=== PATIENT | female | born 1960 | race Caucasian/White ===

== ENCOUNTER 2016-04-01 12:57 | Emergency (ER) | payer BC, OTHER ==
[~2016-04-01] VITALS: Ht 160 cm; Wt 109.0 kg
[~2016-04-01 12:57] MED LIST: ATEN-100 PO; DRIS8000 PO; HYDR-3533 PO; LOVA1TAB47 PO; MIRA25TA; MULT-65 PO; PROT40TA PO
[2016-04-01 13:15] VITALS: BP 168/79; PULSE 76; RESP 20; TEMP 97.8; O2SAT 98
--- NOTE | 2016-04-01 13:26 | PD ---
HPI Chief Complaint: Chest Pain Time Seen by Provider: 13:06 Travel History International Travel<30 days: No Contact w/Intl Traveler<30days: No Traveled to known affect area: No History of Present Illness HPI This 55-year-old female is complaining of left-sided chest pain. Pain has been going on for several days. She's also been having some shooting pain in her left arm. She has recently been found to have bilateral breast cancer and is scheduled for bilateral mastectomy in April 18. She has been started on room and affect. She's been in the room and asked for about 2 months and has not been feeling well for the past week. She has not been eating well. She has been dizzy. She feels like her left arm goes numb. She has been congested and feels like she heard at times she is not aware of any fever. His been having some pain in her teeth and some nasal congestion PFSH Past Medical History Hx Anticoagulant Therapy: No Cardiovascular Problems: Yes (SINUS TACHYCARDIA) High Cholesterol: Yes Chemotherapy: No Diabetes: No Diminished Hearing: No GERD: Yes Genitourinary: Yes (INTERSTITIAL CYSTITIS) Hypertension: Yes Respiratory: No Immunizations Current: No Menopausal: Yes : 7 Para: 0 Miscarriage: 7 Past Surgical History Body Medical Devices: BLADDER PACEMAKER Genitourinary Surgery: Yes (MULT BLADDER PROCEDURES, PACER ) Other Surgery: Yes (BLADDER SURGERY ) Social History Alcohol Use: No Tobacco Use: No (QUIT TWO MONTHS AGO) Substance Use: No Allergies-Medications (Allergen,Severity, Reaction): Coded Allergies: No Known Allergies (Unverified , 04/01/16) Reported Meds & Prescriptions Reported Meds & Active Scripts Active Reported Arimidex (Anastrozole) 1 Mg Tab 1 Mg PO DAILY Alprazolam 0.5 Mg Tab 0.5 Mg PO HS PRN Tagamet Hb (Cimetidine) 200 Mg Tab 400 Mg PO DAILY Atenolol 25 Mg Tab 25 Mg PO BID Review of Systems General / Constitutional: No: Fever, Chills Eyes: No: Diploplia, Blurred Vision HENT: Positive: Rhinitis, Dental Difficulties Cardiovascular: Positive: Chest Pain or Discomfort Respiratory: No: Cough, Shortness of Breath Gastrointestinal: Positive: Nausea, No: Vomiting Genitourinary: No: Urgency Musculoskeletal: Positive: Myalgias, Arthralgias Psychiatric: Positive: Anxiety Endocrine: No: Heat Intolerance Physical Exam Narrative GENERAL: Well-developed female SKIN: Warm and dry. HEAD: Atraumatic. Normocephalic. EYES: Pupils equal and round. No scleral icterus. No injection or drainage. ENT: No nasal bleedinG. There is mucus and sinus. This tender to palpation. Mucous membranes pink and moist. NECK: Trachea midline. No JVD. CARDIOVASCULAR: Regular rate and rhythm. No murmur appreciated. There is left costochondral tenderness RESPIRATORY: No accessory muscle use. Clear to auscultation. Breath sounds equal bilaterally. GASTROINTESTINAL: Abdomen soft, non-tender, nondistended. Hepatic and splenic margins not palpable. MUSCULOSKELETAL: No obvious deformities. No clubbing. No cyanosis. No edema. NEUROLOGICAL: Awake and alert. No obvious cranial nerve deficits. Motor grossly within normal limits. Normal speech. PSYCHIATRIC: Appropriate mood and affect; insight and judgment normal. Data Data Last Documented VS Vital Signs Date Time Temp Pulse Resp B/P Pulse Ox O2 Delivery O2 Flow Rate FiO2 04/01/16 13:15 97.8 76 20 168/79 98 04/01/16 13:15 Room Air Orders Electrocardiogram (04/01/16 13:21) Complete Blood Count With Diff (04/01/16 13:21) Comprehensive Metabolic Panel (04/01/16 13:21) Ckmb (Isoenzyme) Profile (04/01/16 13:21) Troponin I (04/01/16 13:21) Magnesium (Mg) (04/01/16 13:21) Chest, Single Ap (04/01/16 13:21) Ondansetron Inj (Zofran Inj) (04/01/16 14:45) Labs Laboratory Tests Test 04/01/16 13:18 White Blood Count 7.6 TH/MM3 Red Blood Count 5.17 MIL/MM3 Hemoglobin 13.4 GM/DL Hematocrit 41.2 % Mean Corpuscular Volume 79.6 FL Mean Corpuscular Hemoglobin 26.0 PG Mean Corpuscular Hemoglobin 32.7 % Concent Red Cell Distribution Width 13.8 % Platelet Count 364 TH/MM3 Mean Platelet Volume 7.8 FL Neutrophils (%) (Auto) 66.0 % Lymphocytes (%) (Auto) 22.6 % Monocytes (%) (Auto) 7.3 % Eosinophils (%) (Auto) 3.2 % Basophils (%) (Auto) 0.9 % Neutrophils # (Auto) 5.0 TH/MM3 Lymphocytes # (Auto) 1.7 TH/MM3 Monocytes # (Auto) 0.6 TH/MM3 Eosinophils # (Auto) 0.2 TH/MM3 Basophils # (Auto) 0.1 TH/MM3 CBC Comment DIFF FINAL Differential Comment Sodium Level 144 MEQ/L Potassium Level 4.2 MEQ/L Chloride Level 106 MEQ/L Carbon Dioxide Level 27.9 MEQ/L Anion Gap 10 MEQ/L Blood Urea Nitrogen 15 MG/DL Creatinine 1.00 MG/DL Estimat Glomerular Filtration 58 ML/MIN Rate Random Glucose 95 MG/DL Calcium Level 9.6 MG/DL Magnesium Level 2.3 MG/DL Total Bilirubin 0.4 MG/DL Aspartate Amino Transf 13 U/L (AST/SGOT) Alanine Aminotransferase 18 U/L (ALT/SGPT) Alkaline Phosphatase 79 U/L Total Creatine Kinase 50 U/L Troponin I LESS THAN 0.02 NG/ML Total Protein 7.9 GM/DL Albumin 3.6 GM/DL [facility] Medical Decision Making Medical Screen Exam Complete: Yes Emergency Medical Condition: Yes Medical Record Reviewed: Yes Differential Diagnosis Differential includes chest pain, coronary artery disease, costochondritis, sinusitis, adverse medication effect Narrative Course He is on Arimidex and is having multiple myalgias and arthralgias which may be related. Her EKG and troponin are normal. Her chest pain is reproducible by palpation. EKG and troponin are normal. Patient is stable for discharge. I' ll prescribe Zofran as she is having some nausea, amoxicillin and Flexeril Diagnosis Primary Impression: Sinusitis, acute maxillary Qualified Code: J01.00 - Acute maxillary sinusitis, recurrence not specified Scripts Ondansetron Odt (Zofran Odt)4 Mg Tab4 Mg SL Q6HR PRN (Nausea/Vomiting) #15 TAB Ref 0 Prov:Terry Elmore MD 04/01/16 Cyclobenzaprine (Flexeril)10 Mg Tab10 Mg PO TID #30 TAB Ref 0 Prov:Terry Elmore MD 04/01/16 Amoxicillin 500 Mg [id number] Mg PO TID #30 TAB Ref 0 Prov:Terry Elmore MD 04/01/16 Disposition: DISCHARGE HOME Condition: Stable Terry Elmore MD Apr 01, 2016 13:26
[2016-04-01] MEDS ORDERED: ALPR0.5T3 PO (13:28)
[2016-04-01] MEDS ORDERED: ANAS1 PO (13:28)
[2016-04-01] MEDS ORDERED: ATEN25TA PO (13:28)
[2016-04-01] MEDS ORDERED: CIME200T23 PO (13:28)
[2016-04-01 13:34] LABS: BASOPHIL # 0.1 TH/MM3 (0-0.2); BASOPHIL % 0.9 % (0.0-2.0); EOSINOPHIL # 0.2 TH/MM3 (0-0.4); EOSINOPHIL % 3.2 % (0.0-4.0); HEMATOCRIT 41.2 % (35.0-46.0); HEMO FLAGS DIFF FINAL; LYMPH % 22.6 % (9.0-44.0); LYMPHOCYTE # 1.7 TH/MM3 (1.0-4.8); MEAN CELL VOLUME 79.6 FL (80.0-100.0); MEAN CORPUSCULAR HGB CONC 32.7 % (32.0-36.0); MONO % 7.3 % (0.0-8.0); PLATELET COUNT 364 TH/MM3 (150-450); RED BLOOD COUNT 5.17 MIL/MM3 (4.00-5.30); RED CELL DISTRIBUTION WIDTH 13.8 % (11.6-17.2); WHITE BLOOD COUNT 7.6 TH/MM3 (4.0-11.0)
[2016-04-01 13:42] LABS: CHLORIDE 106 MEQ/L (98-107); POTASSIUM 4.2 MEQ/L (3.5-5.1); SODIUM (NA) 144 MEQ/L (136-145)
[2016-04-01 13:46] LABS: ANION GAP 10 MEQ/L (5-15); BICARBONATE 27.9 MEQ/L (21.0-32.0); BLOOD UREA NITROGEN 15 MG/DL (7-18); MAGNESIUM 2.3 MG/DL (1.5-2.5)
[2016-04-01 13:49] LABS: ALT (GPT) 18 U/L (10-53); AST (GOT) 13 U/L (15-37); GLOMERULAR FILTRATION RATE 58 ML/MIN (>89)
[2016-04-01 13:51] LABS: TOTAL BILIRUBIN ADULT 0.4 MG/DL (0.2-1.0)
[2016-04-01 13:52] LABS: ALKALINE PHOSPHATASE 79 U/L (45-117)
--- NOTE | 2016-04-01 13:53 | RADHPO ---
EXAM DATE/TIME: 04/01/2016 13:41 [facility] COMPARISON: CHEST SINGLE AP, September 27, 2013, 6:51. INDICATIONS : Mid left chest pains MEDICAL HISTORY : Carcinoma, breast. SURGICAL HISTORY : lumpectomy ENCOUNTER: Initial ACUITY: 2 days PAIN SCORE: 4/10 LOCATION: Left chest FINDINGS: The lungs are under aerated but clear. Heart and pulmonary vascularity are normal. Portion of bony skeleton visualized is unremarkable. CONCLUSION: Negative chest for acute disease. Torsten Yip MD FACR on April 01, 2016 at 13:49 Board Certified Radiologist. This report was verified electronically.
[2016-04-01 13:57] LABS: CREATINE KINASE 50 U/L (26-192)
[2016-04-01] MEDS ORDERED: ONDANSETRON HCL 4 MG/2 ML VIAL IV PUSH ONE (14:45)
[2016-04-01] MEDS ORDERED: ZOFR4TAB3 SL (15:09)
[2016-04-01] MEDS ORDERED: AMOX500T PO (15:09)
[2016-04-01] MEDS ORDERED: CYCL1TAB29 PO (15:09)
[2016-04-01 15:33] VITALS: BP 138/69; PULSE 90; RESP 20; O2SAT 97
--- NOTE | 2016-04-01 17:35 | EKG ---
Date Performed: 04/01/2016 Time Performed: 12:59:06 PTAGE: 55 years EKG: Sinus rhythm Anterior T wave changes are nonspecific Borderline ECG PREVIOUS TRACING : 07/17/2014 15.57 No significant change from previous tracing noted. DOCTOR: Mario Way Interpretating Date/Time 04/01/2016 17:34:05
== END 2016-04-01 15:34 | disposition home or self-care (01) ==
LOC: PHED 12:57
DX: E78.00 Pure hypercholesterolemia, unspecified (principal); I10 Essential (primary) hypertension; C50.912 Malignant neoplasm of unspecified site of left female breast; Z87.891 Personal history of nicotine dependence; J01.00 Acute maxillary sinusitis, unspecified
CPT/HCPCS: 71010; 80053; 82550; 83735; 84484; 85025; 93005; 96374; 99284; J2405

== ENCOUNTER 2016-10-02 17:51 | Emergency (ER) | payer OTHER ==
[~2016-10-02] VITALS: Ht 160 cm; Wt 118.9 kg
[~2016-10-02 17:51] MED LIST changes: +ALPR0.5T3 PO; +AMOX500T PO; +ANAS1 PO; -ATEN-100 PO; +ATEN25TA PO; +CIME200T23 PO; +CYCL1TAB29 PO; -DRIS8000 PO; -HYDR-3533 PO; -LOVA1TAB47 PO; -MIRA25TA; -MULT-65 PO; -PROT40TA PO; +ZOFR4TAB3 SL
[2016-10-02 18:01] VITALS: BP 164/96; PULSE 97; RESP 16; TEMP 97.8; O2SAT 98
== END 2016-10-02 18:39 | disposition left against medical advice (07) ==
LOC: PHED 17:51
DX: R68.89 Other general symptoms and signs (principal)
CPT/HCPCS: 99281

== ENCOUNTER 2016-11-01 06:07 | Emergency (ER) | payer OTHER ==
[~2016-11-01] VITALS: Ht 162.6 cm; Wt 118.8 kg
[2016-11-01 06:21] VITALS: BP 180/97; PULSE 92; RESP 18; TEMP 99.1; O2SAT 100
[2016-11-01] MEDS ORDERED: BACT800T5 PO (06:54)
[2016-11-01] MEDS ORDERED: DOXY100C PO (06:54)
--- NOTE | 2016-11-01 06:55 | PD ---
HPI Chief Complaint: Skin Problem Time Seen by Provider: 06:22 Travel History International Travel<30 days: No Contact w/Intl Traveler<30days: No Traveled to known affect area: No History of Present Illness HPI The patient is a 56-year-old female that has a slightly pruritic red spots on the right axilla for about 3-4 days. She also complains of some darkened reddened areas around her breast resection site on the left. These have been present for 2 months. The patient is anxious. She has not seen her surgeon that did the mastectomy for over 2 months. She had the surgery done at [facility]. With respect to the right axilla, the patient does use antiperspirants and did shave her axillary hair. The patient states her blood pressure is 117/60 at home but it comes up significantly here in emergency department. There is an area that is draining on the left breast resection site. This is been draining for 2 months. She denies any fever at home. PFSH Past Medical History Hx Anticoagulant Therapy: No Anxiety: Yes (R/T CANCER DIAGNOSIS) Heart Rhythm Problems: Yes (SINUS TACHYCARDIA) Cancer: Yes (RIGHT BREAST) Cardiovascular Problems: Yes (SINUS TACHYCARDIA) High Cholesterol: Yes Chemotherapy: No Diabetes: No Diminished Hearing: No GERD: Yes Genitourinary: Yes (INTERSTITIAL CYSTITIS) Hypertension: Yes Respiratory: No Immunizations Current: Yes Tetanus Vaccination: > 5 Years Influenza Vaccination: Yes ?: Not LMP: JULY 2016 Menopausal: Yes : 7 Para: 0 Miscarriage: 7 Past Surgical History Body Medical Devices: BLADDER PACEMAKER Genitourinary Surgery: Yes (MULT BLADDER PROCEDURES, BLADDER PACEMAKER) Mastectomy: Yes (MARCH 2015: BILATERAL) Other Surgery: Yes (BLADDER SURGERY, BREAST LUMPECTOMIES X2) Social History Alcohol Use: No Tobacco Use: Yes (2 CIGARETTES PER DAY) Substance Use: No Allergies-Medications (Allergen,Severity, Reaction): Coded Allergies: No Known Allergies (Unverified , 11/01/16) Reported Meds & Prescriptions Reported Meds & Active Scripts Active Reported Arimidex (Anastrozole) 1 Mg Tab 1 Mg PO DAILY Alprazolam 0.5 Mg Tab 0.5 Mg PO HS PRN Tagamet Hb (Cimetidine) 200 Mg Tab 400 Mg PO DAILY Atenolol 25 Mg Tab 25 Mg PO BID Review of Systems Except as stated in HPI: all other systems reviewed are Neg Physical Exam Narrative GENERAL: Well-nourished, slightly obese, extremely anxious appearing patient in no apparent distress. The patient's vital signs show blood pressure 180/97 but otherwise normal. SKIN: Focused skin assessment warm/dry. There are hidradenitis suppurativa lesions on the right axilla. These are simple, no vesicles or abscesses are present. These all appear to be very early lesions. There are lesions that appear as raised hyperpigmented lesions over the left breast resection site. The skin is not broken anywhere. There is a slight drainage which is not foul smelling from the left breast resection site. This will be cultured. HEAD: Normocephalic. EYES: No scleral icterus. No injection or drainage. NECK: Supple, trachea midline. No JVD or lymphadenopathy. CARDIOVASCULAR: Regular rate and rhythm without murmurs, gallops, or rubs. RESPIRATORY: Breath sounds equal bilaterally. No accessory muscle use. GASTROINTESTINAL: Abdomen soft, non-tender, nondistended. MUSCULOSKELETAL: No cyanosis, or edema. BACK: Nontender without obvious deformity. No CVA tenderness. Data Data Last Documented VS Vital Signs Date Time Temp Pulse Resp B/P Pulse Ox O2 Delivery O2 Flow Rate FiO2 11/01/16 06:21 99.1 92 18 180/97 100 MDM Medical Decision Making Medical Screen Exam Complete: Yes Emergency Medical Condition: Yes Medical Record Reviewed: Yes Differential Diagnosis Hidradenitis suppurativa, staph infection, recurrent breast cancerunlikely Narrative Course The patient on the right axilla does have hidradenitis suppurativa. This is early and mild. The lesions and drainage on the left breast are chronic and may or may not be associated with staph infection. Diagnosis Primary Impression: Hidradenitis suppurativa Additional Impression: Staphylococcal infection of skin Additional Instructions: As we discussed, the left axilla should be kept cool, clean and without antiperspirant spray. Both antibiotics are twice daily for 10 days. Follow-up with your plastic surgeon as you intend to do. Med/Other Pt SpecificInfo: Prescription(s) given Scripts Sulfamethoxazole-Trimethoprim (Bactrim DS)800-160 Mg Tab1 Tab PO BID #20 TAB Ref 0 Prov:Pedro Wong MD 11/01/16 Doxycycline Hyclate 100 Mg [id number] Mg PO BID #20 CAP Ref 0 Prov:Pedro Wong MD 11/01/16 Disposition: 01 DISCHARGE HOME Condition: Stable Pedro Wong MD Nov 01, 2016 06:55
[2016-11-01] MEDS ORDERED: DOXYCYCLINE HYCLATE 100 MG CAP PO ONE (07:00)
[2016-11-01] MEDS ORDERED: SULFAMETHOXAZOLE-TRIMETHOPRIM DS 800-160 MG TAB PO ONE (07:00)
== END 2016-11-01 07:15 | disposition home or self-care (01) ==
LOC: PHED 06:07
DX: L73.2 Hidradenitis suppurativa (principal); L08.9 Local infection of the skin and subcutaneous tissue, unspecified; F17.210 Nicotine dependence, cigarettes, uncomplicated; R00.0 Tachycardia, unspecified; E78.00 Pure hypercholesterolemia, unspecified; K21.9 Gastro-esophageal reflux disease without esophagitis; I10 Essential (primary) hypertension
CPT/HCPCS: 99284

== ENCOUNTER 2016-12-24 08:14 | Emergency (ER) | payer OTHER ==
[~2016-12-24] VITALS: Ht 160 cm; Wt 120.0 kg
[~2016-12-24 08:14] MED LIST changes: -AMOX500T PO; +BACT800T5 PO; -CYCL1TAB29 PO; +DOXY100C PO; -ZOFR4TAB3 SL
[2016-12-24 08:27] VITALS: BP 146/82; PULSE 103; RESP 18; TEMP 98.1; O2SAT 98
[2016-12-24] MEDS ORDERED: LOVA20TA PO (08:36)
--- NOTE | 2016-12-24 08:54 | PD ---
HPI Chief Complaint: Flank/Kidney Pain Time Seen by Provider: 08:45 Travel History International Travel<30 days: No Contact w/Intl Traveler<30days: No Traveled to known affect area: No History of Present Illness HPI The patient was seen and examined in the presence of the nurse. This patient complains of bilateral flank pain. Duration 2 days. Severity is moderate. No injury. Denies urinary complaints. No alleviating factors. Exacerbating factors. Has not had any fever. No sciatic radiation PFSH Past Medical History Hx Anticoagulant Therapy: No Anxiety: Yes (R/T CANCER DIAGNOSIS) Heart Rhythm Problems: Yes (SINUS TACHYCARDIA) Cancer: Yes (RIGHT BREAST) Cardiovascular Problems: Yes (SINUS TACHYCARDIA) High Cholesterol: Yes Chemotherapy: No Diabetes: No Diminished Hearing: No GERD: Yes Genitourinary: Yes (INTERSTITIAL CYSTITIS) Hypertension: Yes Respiratory: No Immunizations Current: Yes Influenza Vaccination: Yes ?: Not Menopausal: Yes : 7 Para: 0 Miscarriage: 7 Past Surgical History Body Medical Devices: BLADDER PACEMAKER Genitourinary Surgery: Yes (MULT BLADDER PROCEDURES, BLADDER PACEMAKER) Mastectomy: Yes (MARCH 2015: BILATERAL) Other Surgery: Yes (BLADDER SURGERY, BREAST LUMPECTOMIES X2) Social History Alcohol Use: No Tobacco Use: Yes (2 CIGARETTES PER DAY) Substance Use: No Allergies-Medications (Allergen,Severity, Reaction): Coded Allergies: No Known Allergies (Unverified , 12/24/16) Reported Meds & Prescriptions Reported Meds & Active Scripts Active Tramadol (Tramadol HCl) 50 Mg Tab 50 Mg PO Q6H PRN Reported Lovastatin 20 Mg Tab 20 Mg PO DAILY Arimidex (Anastrozole) 1 Mg Tab 1 Mg PO DAILY Alprazolam 0.5 Mg Tab 0.5 Mg PO HS PRN Tagamet Hb (Cimetidine) 200 Mg Tab 400 Mg PO DAILY Atenolol 25 Mg Tab 25 Mg PO BID Review of Systems General / Constitutional: No: Fever Eyes: No: Visual changes HENT: No: Headaches Cardiovascular: No: Chest Pain or Discomfort Respiratory: No: Shortness of Breath Gastrointestinal: No: Abdominal Pain Genitourinary: No: Dysuria Musculoskeletal: Positive: Pain Skin: No Rash Neurologic: No: Weakness Psychiatric: No: Depression Endocrine: No: Polydipsia Hematologic/Lymphatic: No: Easy Bruising Physical Exam Narrative GENERAL: Well-nourished, well-developed patient in no apparent distress. SKIN: Focused skin assessment reveals no rash and nodules. Skin is Warm and dry. HEAD: Atraumatic. Normocephalic. EYES: Pupils equal and round. No scleral icterus. No injection or drainage. ENT: No nasal bleeding or discharge. Mucous membranes pink and moist. NECK: Trachea midline. No JVD. CARDIOVASCULAR: Regular rate and rhythm. No murmur appreciated. RESPIRATORY: No accessory muscle use. Clear to auscultation. Breath sounds equal bilaterally. GASTROINTESTINAL: Abdomen soft, non-tender, nondistended. Hepatic and splenic margins not palpable. MUSCULOSKELETAL: No obvious deformities. No clubbing. No cyanosis. No edema. Some initial back reveals no midline tenderness. No bruising or swelling or spasm. Straight leg raise and crossed straight leg raise negative. NEUROLOGICAL: Awake and alert. No obvious cranial nerve deficits. Motor grossly within normal limits. Normal speech. PSYCHIATRIC: Appropriate mood and affect; insight and judgment normal. Data Data Last Documented VS Vital Signs Date Time Temp Pulse Resp B/P (MAP) Pulse Ox O2 Delivery O2 Flow Rate FiO2 12/24/16 08:27 98.1 103 18 146/82 (103) [address] Abd/Pel W/O Iv Contrast (12/24/16 ) Urinalysis - C+S If Indicated (12/24/16 08:50) Labs Laboratory Tests Test 12/24/16 09:26 Urine Collection Type CLEAN CATCH Urine Color YELLOW Urine Turbidity CLEAR Urine pH 5.5 Urine Specific Moran 1.014 Urine Protein NEG mg/dL Urine Glucose (UA) NEG mg/dL Urine Ketones NEG mg/dL Urine Occult Blood NEG Urine Nitrite NEG Urine Bilirubin NEG Urine Leukocyte Esterase NEG Urine WBC 0-2 /hpf Urine Squamous Epithelial Cells >8 /hpf Urine Bacteria FEW /hpf Microscopic Urinalysis Comment CULT NOT INDICATED MDM Medical Decision Making Medical Screen Exam Complete: Yes Emergency Medical Condition: Yes Medical Record Reviewed: Yes Differential Diagnosis Renal stone, pyelonephritis, lumbar strain, sciatica Narrative Course I have reviewed the patient's electronic medical record. Urinalysis is normal CT of abdomen and pelvis shows nothing emergent. Radiology reading is noted. I don't have clinical suspicion of pyelonephritis. Patient is neurologically intact I believe she has musculoskeletal back pain. I wrote her some tramadol. She should follow-up with primary care Diagnosis Primary Impression: Acute flank pain Additional Instructions: The patient was advised to follow up with their physician and return if they worsen. The patient was warned about potential sedation for the medications they will receive on prescription. Med/Other Pt SpecificInfo: Prescription(s) given Scripts Tramadol (Tramadol) 50 Mg Tab 50 MG PO Q6H Y for PAIN, #20 TAB 0 Refills Prov: Gray Voss MD 12/24/16 Disposition: 01 DISCHARGE HOME Condition: Stable Gray Voss MD Dec 24, 2016 08:54
--- NOTE | 2016-12-24 09:38 | RADRPT ---
EXAM DATE/TIME: 12/24/2016 09:10 [facility] COMPARISON: CT ABDOMEN & PELVIS W CONTRAST, November 10, 2014, 6:52. INDICATIONS : Right flank pain radiating to lower back. Evaluate for renal stone. ORAL CONTRAST: No oral contrast ingested. RADIATION DOSE: 24.93 CTDIvol (mGy) MEDICAL HISTORY : Hypertension. Gastroesophageal reflux disease. Carcinoma, breast.Interstitual cystitis SURGICAL HISTORY : Mastectomy, bilateral. Bladder pacemaker. ENCOUNTER: Initial ACUITY: 1 day PAIN SCALE: 5/10 LOCATION: Right flank TECHNIQUE: Volumetric scanning of the abdomen and pelvis was performed. Using automated exposure control and ad justment of the mA and/or kV according to patient size, radiation dose was kept as low as reasonably achievable to obtain optimal diagnostic quality images. DICOM format image data is available electro nically for review and comparison. FINDINGS: LOWER LUNGS: The visualized lower lungs are clear. LIVER: Homogeneous density without lesion. There is no dilation of the biliary tree. No calcified gallston es. SPLEEN: Normal size without lesion. PANCREAS: Within normal limits. KIDNEYS: Kidneys are symmetrical in size without evidence for radiopaque renal calculi or hydronephrosis. No s ignificant contour deforming abnormality. Very subtle perinephric stranding on the left. ADRENAL GLANDS: Within normal limits. VASCULAR: There is no aortic aneurysm. BOWEL/MESENTERY: Bowel appears grossly unremarkable without evidence for obstruction. Appendix is visualized and mary l in appearance. There is no free air or free fluid. ABDOMINAL WALL: Within normal limits. RETROPERITONEUM: There is no lymphadenopathy. BLADDER: Bladder is nearly completely decompressed. No significant radiopaque bladder calculi. REPRODUCTIVE: Uterus is enlarged and contains by confluent myometrial masses or measuring 7.6 x 6.8 cm and 3.9 x 3. 9 cm. INGUINAL: There is no lymphadenopathy or hernia. MUSCULOSKELETAL: Within normal limits for patient age. Stimulator wires are again noted extending to the sacral neural foramina. CONCLUSION: 1. No radiopaque renal calculi or obstructive uropathy. 2. Very subtle left perinephric stranding. This finding is nonspecific and often not clinically signi ficant. However, differential considerations do include pyelonephritis. 3. Normal appendix. 4. Leiomyomatous uterus similar to prior exam. Ron Rosas MD on December 24, 2016 at 9:29 Board Certified Radiologist. This report was verified electronically.
[2016-12-24 09:51] LABS: BLOOD, URINE NEG (NEG); GLUCOSE,URINE NEG (NEG); KETONE, URINE NEG (NEG); NITRITE,URINE NEG (NEG); PH, URINE 5.5 (5.0-8.5)
[2016-12-24 10:08] LABS: BACTERIA, URINE FEW /hpf; COMMENT (UR) CULT NOT INDICATED; CULTURE IF INDICATED CULT NOT INDICATED; METHOD OF COLLECTION CLEAN CATCH; SQUAMOUS EPITHELIAL CELL URINE >8 /hpf (0-5); URINE COLOR YELLOW (YELLW/STRAW); WBC, URINE 0-2 /hpf (0-5)
[2016-12-24] MEDS ORDERED: TRAM50TA PO (10:21)
[2016-12-24 10:34] VITALS: BP 138/70
== END 2016-12-24 10:35 | disposition home or self-care (01) ==
LOC: PHED 08:14
DX: R10.9 Unspecified abdominal pain (principal); F17.210 Nicotine dependence, cigarettes, uncomplicated; E78.00 Pure hypercholesterolemia, unspecified; I10 Essential (primary) hypertension; Z85.3 Personal history of malignant neoplasm of breast
CPT/HCPCS: 74176; 81001; 99284

== ENCOUNTER 2017-05-11 11:45 | Emergency (ER) | payer OTHER ==
[~2017-05-11] VITALS: Ht 162.6 cm; Wt 109.2 kg
[~2017-05-11 11:45] MED LIST changes: -BACT800T5 PO; -DOXY100C PO; +LOVA20TA PO; +TRAM50TA PO
[2017-05-11 11:57] VITALS: BP 139/92; PULSE 82; RESP 16; TEMP 98; O2SAT 98
[2017-05-11] MEDS ORDERED: SODIUM CHLOR 0.9% 1000 ML INJ 1,000 ML IV ONE (13:19)
[2017-05-11] MEDS ORDERED: OMEP20TA93 PO (13:22)
[2017-05-11] MEDS ORDERED: PROCHLORPERAZINE INJ 10 MG/2 ML VIAL IVP ONE (13:30)
[2017-05-11] MEDS ORDERED: SODIUM CHLORIDE 0.9% FLUSH 10 ML FLUSH IVF PRN (13:30)
[2017-05-11 13:36] LABS: AUTOMATED NEUTROPHIL # 4.9 TH/MM3 (1.8-7.7); BASOPHIL % 0.6 % (0.0-2.0); EOSINOPHIL # 0.2 TH/MM3 (0-0.4); EOSINOPHIL % 2.7 % (0.0-4.0); HEMATOCRIT 44.4 % (35.0-46.0); HEMOGLOBIN 14.5 GM/DL (11.6-15.3); LYMPHOCYTE # 1.4 TH/MM3 (1.0-4.8); MEAN CELL VOLUME 82.1 FL (80.0-100.0); MEAN CORPUSCULAR HEMOGLOBIN 26.8 PG (27.0-34.0); MEAN CORPUSCULAR HGB CONC 32.6 % (32.0-36.0); MEAN PLATELET VOLUME 7.6 FL (7.0-11.0); MONO % 7.5 % (0.0-8.0); MONOCYTE # 0.5 TH/MM3 (0-0.9); NEUT % 69.2 % (16.0-70.0); PLATELET COUNT 328 TH/MM3 (150-450); RED BLOOD COUNT 5.41 MIL/MM3 (4.00-5.30); RED CELL DISTRIBUTION WIDTH 13.9 % (11.6-17.2)
[2017-05-11 13:47] LABS: CALCIUM 9.2 MG/DL (8.5-10.1)
[2017-05-11 13:48] LABS: BICARBONATE 25.6 MEQ/L (21.0-32.0)
[2017-05-11 13:51] LABS: CREATININE 0.89 MG/DL (0.50-1.00)
--- NOTE | 2017-05-11 14:03 | PD ---
HPI Chief Complaint: Dizziness Time Seen by Provider: 13:10 Travel History International Travel<30 days: No Contact w/Intl Traveler<30days: No Traveled to known affect area: No History of Present Illness HPI 56-year-old female came to the emergency room with history of headache that she describes goes across from one voodoo to the other and across her frontal area. Patient says this has been going on for past 2 weeks. She had gone to see her ENT was started on antibiotic and Medrol Dosepak. The medications have not made her feel better. No history of fever or chills. No history of photophobia neck stiffness. She says moving her head up or down does make the frontal headache worse. Vital signs were stable. She usually does not get headaches. Patient has been taking ibuprofen 800 mg. Patient also says that she feels like her face is puffy. PFSH Past Medical History Narrative Medical List of her past medical, surgical, social and family history is reviewed from the nursing note. Hx Anticoagulant Therapy: No Anxiety: Yes (R/T CANCER DIAGNOSIS) Heart Rhythm Problems: Yes (SINUS TACHYCARDIA) Cancer: Yes (RIGHT BREAST) Cardiovascular Problems: Yes (htn on meds) High Cholesterol: Yes Chemotherapy: No Diabetes: No Diminished Hearing: No GERD: Yes Genitourinary: Yes (INTERSTITIAL CYSTITIS) Hypertension: Yes Respiratory: No Immunizations Current: Yes ?: Not Menopausal: Yes : 7 Para: 0 Miscarriage: 7 Past Surgical History Body Medical Devices: BLADDER PACEMAKER Genitourinary Surgery: Yes (MULT BLADDER PROCEDURES, BLADDER PACEMAKER) Mastectomy: Yes (MARCH 2015: BILATERAL) Other Surgery: Yes (BLADDER SURGERY, BREAST LUMPECTOMIES X2) Social History Alcohol Use: No Tobacco Use: Yes (2 CIGARETTES PER DAY) Substance Use: No Allergies-Medications (Allergen,Severity, Reaction): Coded Allergies: No Known Allergies (Unverified , 12/24/16) Comments List of allergies reviewed from the nursing note. Reported Meds & Prescriptions Reported Meds & Active Scripts Active Fioricet (Insvuavvsf-Lrdzekhaaxnlk-Cflcvyrc) 50-300-40 Mg Cap 1 Cap PO Q4H PRN Reported Omeprazole 20 Mg Tab 20 Mg PO DAILY Lovastatin 20 Mg Tab 20 Mg PO DAILY Arimidex (Anastrozole) 1 Mg Tab 1 Mg PO DAILY Atenolol 25 Mg Tab 25 Mg PO BID Narrative Medication List of her home medications reviewed from the nursing note. Review of Systems Except as stated in HPI: all other systems reviewed are Neg Neurologic: Positive: Headache Physical Exam Narrative GENERAL: Awake, alert, mild distress, anxious SKIN: Focused skin assessment warm/dry. HEAD: Atraumatic. Normocephalic. EYES: Pupils equal and round. No scleral icterus. No injection or drainage. ENT: No nasal bleeding or discharge. Mucous membranes pink and moist. NECK: Trachea midline. No JVD. Neck is supple, no meningismus CARDIOVASCULAR: Regular rate and rhythm. No murmur appreciated. RESPIRATORY: No accessory muscle use. Clear to auscultation. Breath sounds equal bilaterally. GASTROINTESTINAL: Abdomen soft, non-tender, nondistended. Hepatic and splenic margins not palpable. MUSCULOSKELETAL: No obvious deformities. No clubbing. No cyanosis. No edema. NEUROLOGICAL: Awake and alert. No obvious cranial nerve deficits. Motor grossly within normal limits. Normal speech. PSYCHIATRIC: Appropriate mood and affect; insight and judgment normal. Data Data Last Documented VS Vital Signs Date Time Temp Pulse Resp B/P (MAP) Pulse Ox O2 Delivery O2 Flow Rate FiO2 05/11/17 14:42 70 16 98 05/11/17 14:21 Room Air 05/11/17 11:57 98.0 139/92 (108) Orders Orders Complete Blood Count With Diff (05/11/17 13:19) Basic Metabolic Panel (Bmp) (05/11/17 13:19) Ct Brain W/O Iv Contrast(Rout) (05/11/17 13:19) Ecg Monitoring (05/11/17 13:19) Iv Access Insert/Monitor (05/11/17 13:19) Oximetry (05/11/17 13:19) Sodium Chloride 0.9% Flush (Ns Flush) (05/11/17 13:30) Prochlorperazine Inj (Compazine Inj) (05/11/17 13:30) Sodium Chlor 0.9% 1000 Ml Inj (Ns 1000 M (05/11/17 13:19) Ed Discharge Order (05/11/17 14:15) Labs Laboratory Tests Test 05/11/17 13:31 White Blood Count 7.0 TH/MM3 Red Blood Count 5.41 MIL/MM3 Hemoglobin 14.5 GM/DL Hematocrit 44.4 % Mean Corpuscular Volume 82.1 FL Mean Corpuscular Hemoglobin 26.8 PG Mean Corpuscular Hemoglobin Concent 32.6 % Red Cell Distribution Width 13.9 % Platelet Count 328 TH/MM3 Mean Platelet Volume 7.6 FL Neutrophils (%) (Auto) 69.2 % Lymphocytes (%) (Auto) 20.0 % Monocytes (%) (Auto) 7.5 % Eosinophils (%) (Auto) 2.7 % Basophils (%) (Auto) 0.6 % Neutrophils # (Auto) 4.9 TH/MM3 Lymphocytes # (Auto) 1.4 TH/MM3 Monocytes # (Auto) 0.5 TH/MM3 Eosinophils # (Auto) 0.2 TH/MM3 Basophils # (Auto) 0.0 TH/MM3 CBC Comment DIFF FINAL Differential Comment Blood Urea Nitrogen 20 MG/DL Creatinine 0.89 MG/DL Random Glucose 103 MG/DL Calcium Level 9.2 MG/DL Sodium Level 140 MEQ/L Potassium Level 4.1 MEQ/L Chloride Level 108 MEQ/L Carbon Dioxide Level 25.6 MEQ/L Anion Gap 6 MEQ/L Estimat Glomerular Filtration Rate 66 ML/MIN MDM Medical Decision Making Medical Screen Exam Complete: Yes Emergency Medical Condition: Yes Medical Record Reviewed: Yes Differential Diagnosis Tension headache, headache NOS, intracranial bleed, intracranial tumor Narrative Course 2:02 PM blood test result is back and within acceptable limits. Awaiting for the CAT scan report. Patient was given IV fluid bolus and IV Compazine. 2:[address] scan is within normal limit. I went and reassessed her and she says her headache feels little better. I'm comfortable discharging her home. Procedures EKG Prior to Arrival: No Diagnosis Primary Impression: Tension headache Referrals: Primary Care Physician Additional Instructions: Drink lots of fluid. Stay away from wine, chocolates, cigarettes, cheese that would make the headache worse. No watching television, computer screen or Smart phone for another 24-48 hours since it will make the headache worse. Take the medication as per the prescription direction. Return to ER if condition worsens or any other new concerns. Otherwise follow-up with your primary care. Med/Other Pt SpecificInfo: Prescription(s) given Scripts Zuwgkbkivo-Sihxdxejmwbuo-Mudhoqdq (Fioricet) 50-300-40 Mg Cap 1 CAP PO Q4H Y for HEADACHE, #15 CAP 0 Refills Prov: Candelaria Merino MD 05/11/17 Disposition: 01 DISCHARGE HOME Condition: Stable Candelaria Merino MD May 11, 2017 14:03
--- NOTE | 2017-05-11 14:09 | RADRPT ---
EXAM DATE/TIME: 05/11/2017 13:50 [facility] COMPARISON: CT BRAIN W/O CONTRAST, September 12, 2012, 11:37. INDICATIONS : Headache, dizziness and blurred vision. RADIATION DOSE: 57.61 CTDIvol (mGy) MEDICAL HISTORY : Hypertension. Carcinoma, breast. SURGICAL HISTORY : Mastectomy, bilateral. Bladder pacemaker. ENCOUNTER: Initial ACUITY: 2 weeks PAIN SCALE: 4/10 LOCATION: cranial TECHNIQUE: Multiple contiguous axial images were obtained of the head. Using automated exposure control and adj ustment of the mA and/or kV according to patient size, radiation dose was kept as low as reasonably a chievable to obtain optimal diagnostic quality images. DICOM format image data is available electro nically for review and comparison. FINDINGS: CEREBRUM: The ventricles are normal for age. No evidence of midline shift, mass lesion, hemorrhage or acute in farction. No extra-axial fluid collections are seen. POSTERIOR FOSSA: The cerebellum and brainstem are intact. The 4th ventricle is midline. The cerebellopontine angle i s unremarkable. EXTRACRANIAL: The visualized portion of the orbits is intact. SKULL: The calvaria is intact. No evidence of skull fracture. CONCLUSION: 1. No acute intracranial abnormality. Ron Rosas MD on May 11, 2017 at 14:07 Board Certified Radiologist. This report was verified electronically.
[2017-05-11] MEDS ORDERED: BUTA1CAP PO (14:17)
[2017-05-11 14:21] VITALS: O2SAT 98
== END 2017-05-11 14:45 | disposition home or self-care (01) ==
LOC: PHED 11:45
DX: G44.209 Tension-type headache, unspecified, not intractable (principal); R00.0 Tachycardia, unspecified; I10 Essential (primary) hypertension; Z72.0 Tobacco use
CPT/HCPCS: 70450; 80048; 85025; 96361; 96374; 99284; J0780; J7030

== ENCOUNTER 2017-12-06 00:51 | Observation (INO) ==
--- NOTE | 2017-12-06 02:39 | ED ---
HPI General Chief Complaint: Chest Pain Stated Complaint: stomach pain/nausea/tight chest x1 day Source: patient Mode of arrival: ambulatory Limitations: no limitations History of Present Illness HPI narrative: 57-year-old female presents to the emergency department for 1 day of generalized abdominal pain epigastric pain and right-sided chest pain. Patient reports she is very concerned she is having a heart attack or that she has colon cancer. Patient does not have pleuritic component to her chest pain. Patient does not have shortness of breath. Patient states she is status post bilateral mastectomy for breast cancer diagnosed in 2017. No recent surgical procedure. Patient does have history of hypertension and tobaccoism; denies dyslipidemia or diabetes. Family history of colon cancer. Patient says she scheduled to have a colonoscopy on Saturday and is very anxious about this and developed chest discomfort and generalized abdominal pain tonight. Patient does not complain of abdominal pain at this time. Patient is taken no medications prior to arrival to the emergency department. Patient has developed nausea. Patient is unable to identify association with diet. No dietary indiscretion well water ingestion of foreign travel. MD complaint: chest pain and other (abdominal pain and epigastric pain) STEMI Alert: No Onset (ago): hour(s) Duration: constant Onset: during rest Pain location: right chest and epigastric Severity: moderate Quality: tightness Pain radiation: none Relieving factors: nothing Exacerbating factors: nothing Associated symptoms: nausea and diaphoresis Treatments prior to arrival chest pain: none Related Data On Oral Contraceptives: No Home Medications Medication Instructions Recorded Confirmed anastrozole [Arimidex] 1 mg PO DAILY 12/06/17 12/06/17 atenolol 25 mg PO DAILY 12/06/17 12/06/17 doxepin 10 mg PO DAILY 12/06/17 12/06/17 lovastatin 20 mg PO DAILY 12/06/17 12/06/17 omeprazole 20 mg PO DAILY 12/06/17 12/06/17 Allergies Allergy/AdvReac Type Severity Reaction Status Date / Time No Known Allergies Allergy Unverified 12/06/17 01:16 Review of Systems ROS: all other systems reviewed are negative [facility] Medical History Medical History Breast cancer (Acute) Hypertension (Acute) Surgical History Surgical History H/O mastectomy (Acute) Social History Social History Substance History: No History of Abuse Smoking Status: Current every day smoker Tobacco Type: Cigarettes How Often Do You Have a Drink Containing Alcohol: Never Recent Travel in [facility] within the Last 8 Weeks: No Recent Out of Country Travel within the Last 8 Weeks: No Immunization History Tetanus Immunization: >5 Years Hx Influenza Vaccine This Season: Yes Exam Narrative Exam Narrative: GENERAL: Well-nourished, well-developed patient. SKIN: Focused skin assessment warm/dry. HEAD: Normocephalic. EYES: No scleral icterus. No injection or drainage. NECK: Supple, trachea midline. No JVD or lymphadenopathy. CARDIOVASCULAR: Regular rate and rhythm without murmurs, gallops, or rubs. RESPIRATORY: Breath sounds equal bilaterally. No accessory muscle use. GASTROINTESTINAL: Abdomen soft, non-tender, nondistended. MUSCULOSKELETAL: No cyanosis, or edema. BACK: Nontender without obvious deformity. No CVA tenderness. Course Initial Documented Vital Signs Temperature 98.2 F 12/06/17 00:55 Pulse Rate 97 H 12/06/17 00:55 Respiratory Rate 18 12/06/17 00:55 Blood Pressure 171/84 H 12/06/17 00:55 Pulse Oximetry 97 12/06/17 00:55 Last Documented Vital Signs Temperature 98.2 F 12/06/17 00:55 Pulse Rate 89 12/06/17 04:00 Respiratory Rate 16 12/06/17 04:00 Blood Pressure 146/88 H 12/06/17 04:00 Pulse Oximetry 98 12/06/17 04:00 Medical Decision Making MDM Narrative Medical decision making narrative: 57-year-old female with complaint of generalized abdominal pain epigastric pain and right-sided chest pain. 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 No redness no dullness no tenderness at the site. No fever no chills. Patient reports nausea previously reported diaphoresis. Patient is very concerned that she may have colon cancer and is asking if her symptoms are consistent with diagnosis of colon cancer. Patient has family history of colon cancer with her father dying in his 50s. Patient is scheduled for colonoscopy on Saturday. Patient denies any chest discomfort at this time. Risk factors female age 57 hypertension tobaccoism EKG is sinus rhythm no acute ST elevation and first set of troponin and CK are not elevated. Patient continues complain of nausea CT abdomen pelvis reveals no soft nontender to palpation and no guarding or rebound. Patient also has no heel strike pain. Patient's case discussed with [facility] medicine service, Dr Watts, for observation admission for chest pain center protocol patient given additional dose of Zofran has received aspirin current discomfort is 0-1/10 intensity Medical Screen Exam Complete: Yes Emergency Medical Condition: Yes Differential Diagnosis Differential Diagnosis: Abdominal pain cholecystitis pancreatitis gastritis peptic ulcer disease esophageal spasm ACS [facility] PE pneumonia chest wall pain anxiety Medical Records Medical records reviewed: Yes I reviewed the patient's medical records. Lab Data Lab results reviewed: Yes I reviewed the patient's lab results. Result diagrams: 12/06/17 02:45 12/06/17 02:45 Lab Results 12/06/17 12/06/17 12/06/17 Range/Units 02:45 02:45 02:45 CBC w Diff Auto diff final WBC 7.9 (4.0-11.0) th/mm3 RBC 5.39 H (4.00-5.30) mil/mm3 Hgb 15.1 (11.6-15.3) gm/dL Hct 46.0 (35.0-46.0) % MCV 85.2 (80.0-100.0) fL MCH 28.1 (27.0-34.0) pg MCHC 32.9 (32.0-36.0) % RDW 13.1 (11.6-17.2) % Plt Count 394 (150-450) th/mm3 MPV 8.1 (7.0-11.0) fL Neut % (Auto) 62.8 (16.0-70.0) % Lymph % (Auto) 24.5 (9.0-44.0) % Tyrrell % (Auto) 8.2 H (0.0-8.0) % Eos % (Auto) 3.6 (0.0-4.0) % Baso % (Auto) 0.9 (0.0-2.0) % Neut # (Auto) 5.0 (1.8-7.7) th/mm3 Lymph # (Auto) 1.9 (1.0-4.8) th/mm3 Tyrrell # (Auto) 0.6 (0.0-0.9) th/mm3 Eos # (Auto) 0.3 (0.0-0.4) th/mm3 Baso # (Auto) 0.1 (0.0-0.2) th/mm3 WBC Differential . Differential Comment . Sodium 140 (136-145) meq/L Potassium 3.7 (3.5-5.1) meq/L Chloride 104 (98-107) meq/L Carbon Dioxide 25.7 (21.0-32.0) meq/L Anion Gap 10 (5-15) meq/L BUN 21 H (7-18) mg/dL Creatinine 1.00 (0.50-1.00) mg/dL Estimated GFR 57 L (>89) mL/min Random Glucose 128 H (74-106) mg/dL Lactic Acid 1.7 (0.4-2.0) mmol/L Calcium 9.4 (8.5-10.1) mg/dL Total Bilirubin 0.2 (0.2-1.0) mg/dL AST 16 (15-37) U/L ALT 25 (10-53) U/L Alkaline Phosphatase 95 (45-117) U/L Total Creatine Kinase 44 (26-192) U/L Troponin I Less than 0.02 L (0.02-0.05) ng/mL Total Protein 7.8 (6.4-8.2) g/dL Albumin 3.6 (3.4-5.0) g/dL Lipase 142 (73-393) U/L Urine Color (Yellw/Straw) Urine Clarity (Clear) Urine pH (5.0-8.5) Ur Specific Freeland (1.002-1.035) Urine Protein (Neg-Trace) mg/dL Urine Glucose (UA) (Negative) mg/dL Urine Ketones (Negative) mg/dL Urine Occult Blood (Negative) Urine Nitrate (Negative) Urine Bilirubin (Negative) Urine Urobilinogen (Less than 2) mg/dL Ur Leukocyte Esterase (Negative) Urine RBC (0-3) /hpf Urine WBC (0-5) /hpf Ur Squamous Epith Cells (0-5) /hpf Urine Bacteria (None) /hpf Micro UA Comment Ur Microscopic Review Urine Culture Comments 12/06/17 Range/Units 03:00 CBC w Diff WBC (4.0-11.0) th/mm3 RBC (4.00-5.30) mil/mm3 Hgb (11.6-15.3) gm/dL Hct (35.0-46.0) % MCV (80.0-100.0) fL MCH (27.0-34.0) pg MCHC (32.0-36.0) % RDW (11.6-17.2) % Plt Count (150-450) th/mm3 MPV (7.0-11.0) fL Neut % (Auto) (16.0-70.0) % Lymph % (Auto) (9.0-44.0) % Tyrrell % (Auto) (0.0-8.0) % Eos % (Auto) (0.0-4.0) % Baso % (Auto) (0.0-2.0) % Neut # (Auto) (1.8-7.7) th/mm3 Lymph # (Auto) (1.0-4.8) th/mm3 Tyrrell # (Auto) (0.0-0.9) th/mm3 Eos # (Auto) (0.0-0.4) th/mm3 Baso # (Auto) (0.0-0.2) th/mm3 WBC Differential Differential Comment Sodium (136-145) meq/L Potassium (3.5-5.1) meq/L Chloride (98-107) meq/L Carbon Dioxide (21.0-32.0) meq/L Anion Gap (5-15) meq/L BUN (7-18) mg/dL Creatinine (0.50-1.00) mg/dL Estimated GFR (>89) mL/min Random Glucose (74-106) mg/dL Lactic Acid (0.4-2.0) mmol/L Calcium (8.5-10.1) mg/dL Total Bilirubin (0.2-1.0) mg/dL AST (15-37) U/L ALT (10-53) U/L Alkaline Phosphatase (45-117) U/L Total Creatine Kinase (26-192) U/L Troponin I (0.02-0.05) ng/mL Total Protein (6.4-8.2) g/dL Albumin (3.4-5.0) g/dL Lipase (73-393) U/L Urine Color Yellow (Yellw/Straw) Urine Clarity Clear (Clear) Urine pH 5.5 (5.0-8.5) Ur Specific Freeland 1.025 (1.002-1.035) Urine Protein Negative (Neg-Trace) mg/dL Urine Glucose (UA) Negative (Negative) mg/dL Urine Ketones Negative (Negative) mg/dL Urine Occult Blood Negative (Negative) Urine Nitrate Negative (Negative) Urine Bilirubin Negative (Negative) Urine Urobilinogen 0.2 (Less than 2) mg/dL Ur Leukocyte Esterase Negative (Negative) Urine RBC 0-3 (0-3) /hpf Urine WBC 0-5 (0-5) /hpf Ur Squamous Epith Cells 0-5 (0-5) /hpf Urine Bacteria Few H (None) /hpf Micro UA Comment Culture not ind Ur Microscopic Review Microscopic reviewed Urine Culture Comments Culture not ind Imaging Data Radiologist's impression: Chest X-Ray 12/06/17 02:33 CONCLUSION: 1. No acute abnormality or significant interval change. Abdomen/Pelvis CT 12/06/17 02:35 CONCLUSION: 1. No acute CT abnormality in the abdomen or pelvis. 2. Normal appendix. 3. Hepatic steatosis. 4. Leiomyomatous uterus. ECG Data EKG Prior to Arrival: No Attestation: I personally reviewed and interpreted this ECG as follows: Prior ECG tracings: not available for review Interpretation: EKG: Normal sinus rhythm rate [address] elevation or injury pattern or ectopy noted Discharge Plan Discharge Disposition Patient Disposition: 30 Still Patient Discharge Condition Condition: Stable Discharge Details Diagnosis: Chest pain Physicians Team ED Provider: Keisha Velasco Primary Care Provider: Luis Lopez Attending Provider: Tianna Watts Status ED Status: Admitted Observation Patient
[2017-12-06 03:08] LABS: Chloride 104 meq/L (98-107); Potassium 3.7 meq/L (3.5-5.1); Sodium 140 meq/L (136-145)
[2017-12-06 03:11] LABS: Calcium 9.4 mg/dL (8.5-10.1)
[2017-12-06 03:12] LABS: Albumin 3.6 g/dL (3.4-5.0); Anion Gap 10 meq/L (5-15); Blood Urea Nitrogen 21 mg/dL (7-18); Carbon Dioxide 25.7 meq/L (21.0-32.0); Glucose,Random 128 mg/dL (74-106); Lipase 142 U/L (73-393)
[2017-12-06 03:15] LABS: Alanine Aminotransferase 25 U/L (10-53); Aspartate Aminotransferase 16 U/L (15-37); Glomerular Filtration Rate 57 mL/min (>89)
[2017-12-06 03:16] LABS: Total Protein 7.8 g/dL (6.4-8.2)
[2017-12-06 03:18] LABS: Alkaline Phosphatase 95 U/L (45-117)
[2017-12-06 03:22] LABS: Baso # (Auto) 0.1 th/mm3 (0.0-0.2); Baso % (Auto) 0.9 % (0.0-2.0); Eos # (Auto) 0.3 th/mm3 (0.0-0.4); Eos % (Auto) 3.6 % (0.0-4.0); Hemoglobin 15.1 gm/dL (11.6-15.3); Lymph # (Auto) 1.9 th/mm3 (1.0-4.8); Lymph % (Auto) 24.5 % (9.0-44.0); Mean Corpuscular HGB Conc 32.9 % (32.0-36.0); Mean Corpuscular Hemoglobin 28.1 pg (27.0-34.0); Mean Corpuscular Volume 85.2 fL (80.0-100.0); Mean Platelet Volume 8.1 fL (7.0-11.0); Mono # (Auto) 0.6 th/mm3 (0.0-0.9); Mono % (Auto) 8.2 % (0.0-8.0); Neut % (Auto) 62.8 % (16.0-70.0); Platelet Count 394 th/mm3 (150-450); Red Blood Count 5.39 mil/mm3 (4.00-5.30); Red Cell Distribution Width 13.1 % (11.6-17.2); White Blood Count 7.9 th/mm3 (4.0-11.0)
[2017-12-06 03:26] LABS: Creatine Kinase 44 U/L (26-192)
[2017-12-06 03:36] LABS: Bilirubin,Urine Negative (Negative); Clarity,Urine Clear (Clear); Color,Urine Yellow (Yellw/Straw); Glucose,Urine (UA) Negative (Negative); Leukocyte Esterase,Urine Negative (Negative); Nitrite,Urine Negative (Negative); PH,Urine 5.5 (5.0-8.5); Specific Gravity,Urine 1.025 (1.002-1.035); Urobilinogen,Urine 0.2 mg/dL (Less than 2)
--- NOTE | 2017-12-06 03:40 | XR ---
EXAM DATE: 12/06/2017 2:56 AM EDT AGE/SEX: 57 years / Female INDICATIONS: Chest tightness and nausea today. CLINICAL DATA: This is the patient's initial encounter. Patient reports that signs and symptoms have been present for 1 day and indicates a pain score of 0/10. MEDICAL/SURGICAL HISTORY: . Hypertension. Carcinoma, breast. . Mastectomy, bilateral. Bladder pacemaker COMPARISON: [facility], CHEST SINGLE AP, 04/01/2016. . FINDINGS: No new focal pleural or parenchymal opacities. Cardiomediastinal contours are stable. Rounded radiopa que density overlying the right lateral chest. Bony thorax is intact. CONCLUSION: 1. No acute abnormality or significant interval change. Electronically signed by: Ron Rosas MD 12/06/2017 3:39 AM EDT
[2017-12-06 03:48] LABS: Bacteria,Urine Few /hpf; RBC,Urine 0-3 /hpf (0-3); Squamous Epithelial Cell,Urine 0-5 /hpf (0-5); WBC,Urine 0-5 /hpf (0-5)
--- NOTE | 2017-12-06 04:08 | CT ---
EXAM DATE: 12/06/2017 4:02 AM EDT AGE/SEX: 57 years / Female INDICATIONS: Stomach pain. Nausea. Chest tightness. CLINICAL DATA: This is the patient's initial encounter. Patient reports that signs and symptoms have been present for 1 day and indicates a pain score of 5/10. MEDICAL/SURGICAL HISTORY: . Breast Cancer. Hypertension. . Mastectomy. ORAL CONTRAST: No oral contrast ingested. RADIATION DOSE: 21.65 CTDI (mGy) COMPARISON: [facility], CT ABDOMEN & PELVIS W/O CONTRAST, 12/24/2016. . TECHNIQUE: Multiple contiguous axial images were obtained through the abdomen and pelvis following b olus infusion of 80 ml Omnipaque 350 (iohexol) nonionic water-soluble contrast as a single exam dos e. No oral contrast ingested. Using automated exposure control and adjustment of the mA and/or kV ac cording to patient size, radiation dose was kept as low as reasonably achievable to obtain optimal di agnostic quality images. DICOM format image data is available electronically for review and comparis on. FINDINGS: LOWER LUNGS: The visualized lower lungs are clear. LIVER: Mild diffusely decreased hepatic density without intrahepatic ductal dilatation. Gallbladder is unremarkable by CT. SPLEEN: Homogeneous density without enlargement. PANCREAS: Unremarkable without mass or calcification. KIDNEYS: Kidneys demonstrate symmetrical enhancement without evidence for radiopaque renal calculi o r hydronephrosis. Small subcentimeter hypodense cystic lesions bilaterally are too small to fully gorge racterize. ADRENAL GLANDS: Unremarkable. AORTA: Fallon-aneurysmal. BOWEL/MESENTERY: The bowel loops are grossly unremarkable. The cecum and sigmoid colon have a mary l configuration. Appendix is visualized and normal in appearance. No free fluid or drainable fluid co llections. ABDOMINAL WALL: Intact. RETROPERITONEUM: No evidence of adenopathy in the retrocrural, para-aortic, or deep pelvic regions. BLADDER: Contours are smooth. REPRODUCTIVE: Redemonstration of leiomyomatous uterus BONY STRUCTURES: Sacral neural stimulator in place. No focal lytic or blastic bony lesions. CONCLUSION: 1. No acute CT abnormality in the abdomen or pelvis. 2. Normal appendix. 3. Hepatic steatosis. 4. Leiomyomatous uterus. Electronically signed by: Ron Rosas MD 12/06/2017 4:07 AM EDT
[2017-12-06] MEDS ORDERED: Ketorolac Inj 30 MG/ML (IVP) Vial IV.PUSH ONE (04:34)
[2017-12-06 07:16] LABS: Creatine Kinase 42 U/L (26-192)
--- NOTE | 2017-12-06 08:16 | P.HP ---
History of Present Illness Primary Care Physician: Luis Lopez MD Chief Complaint: Abdominal pain History of Present Illness: 57-year-old female with known history of hypertension, arrhythmia, hyperlipidemia, breast cancer status post mastectomy, who presented to the hospital because of abdominal/chest pain. Patient states that she is in normal state of health until yesterday evening when she started developing a diffuse abdominal pain which was a 5/10 on a pain scale. She had some nausea but no vomiting. Patient denied any diarrhea, constipation, hematemesis. Patient is undergoing outpatient evaluation by Dr. Black, plans for colonoscopy 12/10/17. Patient states that the pain did not resolve so she proceeded to drive herself to the emergency department. When she got in the car to drive here she started developing chest discomfort which she describes as a tightness across her bilateral chest. There is some radiation into her back. She did have the nausea. Denied any vomiting, shortness of breath, dyspnea, lightheadedness, dizziness, diaphoresis. Patient denies any previous cardiac workup. Denies any previous stress test. Patient had workup done emergency department without any significant etiology of her discomfort. It was recommended by the ER physician that the patient be observed in the hospital to evaluate for her chest discomfort. - Diagnosis (1) Abdominal pain (2) Chest pain Review of Systems All other systems reviewed negative except as stated in HPI Cardiovascular: Reports chest pain Gastrointestinal: Reports abdominal pain, Reports nausea PMFSH - History History Provided By: Patient - Medical History Medical History: Medical History (Last Updated 12/06/17 @ 07:25 by ISIDRO Leon) Breast cancer Complication of urinary electronic stimulator device Hyperlipemia Hypertension Lymphedema syndrome, postmastectomy - Surgical History Surgical History: Surgical History (Last Reviewed 12/06/17 @ 07:26 by ISIDRO Leon) H/O mastectomy S/P implantation of urinary electronic stimulator device - Family History Family History: Family History (Last Updated 12/06/17 @ 07:26 by ISIDRO Leon) Mother History of diabetes mellitus Father History of colon cancer - Tobacco History Second Hand Smoke Exposure: Yes Tobacco Use In Past 30 Days: Yes Smoking Status: Current every day smoker Tobacco Type: Cigarettes Cigarettes Per Day: 4 - Alcohol History How Often Do You Have a Drink Containing Alcohol: Never - Substance Use History Substance History: No History of Abuse - Travel History Recent Travel in the [place] Within the Last 8 Weeks: No Recent Travel Out of the Country Within the Last 8 Weeks: No - Immunization History Tetanus Immunization: >5 Years Hx Influenza Vaccine This Season: Yes Medications and Allergies Active Medications: Active Medications Anastrozole (Arimidex) 1 mg PO DAILY BRYAN Atenolol (Tenormin) 25 mg PO DAILY BRYAN Doxepin HCl (Sinequan) 10 mg PO DAILY BRYAN Nitroglycerin (Nitrostat Sl) 0.4 mg SL Q5M PRN PRN Reason: CHEST PAIN Pantoprazole Sodium (Protonix) 40 mg PO DAILY BRYAN Pravastatin Sodium (Pravachol) 20 mg PO DAILY BRYAN Sodium Chloride (Ns Flush) 2 ml IV.FLUSH PRN PRN PRN Reason: FLUSH AFTER USING IV ACCESS Sodium Chloride (Ns Flush) 2 ml IV.FLUSH BID BRYAN Sodium Chloride (Ns Flush) 2 ml IV.FLUSH PRN PRN PRN Reason: FLUSH AFTER USING IV ACCESS Allergies Allergy/AdvReac Type Severity Reaction Status Date / Time No Known Allergies Allergy Unverified 12/06/17 01:16 Home Medications Medication Instructions Recorded Confirmed Type anastrozole [Arimidex] 1 mg PO DAILY 12/06/17 12/06/17 History atenolol 25 mg PO DAILY 12/06/17 12/06/17 History doxepin 10 mg PO DAILY 12/06/17 12/06/17 History lovastatin 20 mg PO DAILY 12/06/17 12/06/17 History omeprazole 20 mg PO DAILY 12/06/17 12/06/17 History Exam Vital signs: Vital Signs 12/06/17 00:55 12/06/17 01:16 12/06/17 03:00 Temperature 98.2 F Pulse Rate 97 H 84 74 Respiratory Rate 18 16 16 Blood Pressure 171/84 H 148/82 H 148/85 H Pulse Oximetry 97 98 98 12/06/17 04:00 12/06/17 04:43 12/06/17 05:04 Temperature 98.0 F Pulse Rate 89 82 64 Respiratory Rate 16 16 20 Blood Pressure 146/88 H 153/72 H 127/68 Pulse Oximetry 98 99 12/06/17 05:45 12/06/17 08:03 Temperature Pulse Rate Respiratory Rate Blood Pressure Pulse Oximetry 96 94 L Intake & Output 12/05/17 12/06/17 12/06/17 18:59 06:59 18:59 Weight 116.4 kg Other: # Voids 2 Weight On Admission 116.4 kg Narrative: GENERAL: Well-developed, well-nourished, in no acute distress. alert and orientated HEENT: Head is normocephalic without any lesions or masses noted. Facial features are symmetric. Eyes: Pupils equal round reactive to light. Extraocular muscles are intact. Conjunctivae were clear. Oropharyngeal: Pharynx without any erythema edema. Tongue is midline without deviation. Buccal mucosa is moist without any masses or lesions NECK: Supple without any masses. Trachea midline no deviation. No JVD, no bruits are appreciated CARDIAC: Regular rhythm, regular rate. S1/S2 are heard. No murmurs gallops or rubs. LUNGS: Clear to auscultation bilaterally. No wheeze, rhonchi or rales. No use of accessory muscles on inspiration or expiration. ABDOMEN: Soft, mild tenderness noted in the left lower quadrant. Nondistended. Bowel sounds heard in all 4 quadrants. No organomegaly or masses. Negative rebound, negative guarding EXTREMITIES: No edema, pulses are equal bilaterally. No cyanosis or clubbing NEUROLOGY: Mood and affect appear appropriate. Cranial nerves II through XII grossly intact. Muscle strength 5/5 in upper and lower extremities bilaterally. Deep tendon reflexes are 2+ in upper and lower extremities bilaterally. Results - Labs CBC & Chem 7: 12/06/17 02:45 12/06/17 02:45 Labs: Laboratory Results - last 24 hr 12/06/17 12/06/17 12/06/17 02:45 02:45 02:45 CBC w Diff Auto diff final WBC 7.9 RBC 5.39 H Hgb 15.1 Hct 46.0 MCV 85.2 MCH 28.1 MCHC 32.9 RDW 13.1 Plt Count 394 MPV 8.1 Neut % (Auto) 62.8 Lymph % (Auto) 24.5 [place] % (Auto) 8.2 H Eos % (Auto) 3.6 Baso % (Auto) 0.9 Neut # (Auto) 5.0 Lymph # (Auto) 1.9 [place] # (Auto) 0.6 Eos # (Auto) 0.3 Baso # (Auto) 0.1 WBC Differential . Differential Comment . Sodium 140 Potassium 3.7 Chloride 104 Carbon Dioxide 25.7 Anion Gap 10 BUN 21 H Creatinine 1.00 Estimated GFR 57 L Random Glucose 128 H Lactic Acid 1.7 Calcium 9.4 Total Bilirubin 0.2 AST 16 ALT 25 Alkaline Phosphatase 95 Total Creatine Kinase 44 Troponin I Less than 0.02 L Total Protein 7.8 Albumin 3.6 Lipase 142 Urine Color Urine Clarity Urine pH Ur Specific [place] Urine Protein Urine Glucose (UA) Urine Ketones Urine Occult Blood Urine Nitrate Urine Bilirubin Urine Urobilinogen Ur Leukocyte Esterase Urine RBC Urine WBC Ur Squamous Epith Cells Urine Bacteria Micro UA Comment Ur Microscopic Review Urine Culture Comments 12/06/17 12/06/17 03:00 06:45 CBC w Diff WBC RBC Hgb Hct MCV MCH MCHC RDW Plt Count MPV Neut % (Auto) Lymph % (Auto) [place] % (Auto) Eos % (Auto) Baso % (Auto) Neut # (Auto) Lymph # (Auto) [place] # (Auto) Eos # (Auto) Baso # (Auto) WBC Differential Differential Comment Sodium Potassium Chloride Carbon Dioxide Anion Gap BUN Creatinine Estimated GFR Random Glucose Lactic Acid Calcium Total Bilirubin AST ALT Alkaline Phosphatase Total Creatine Kinase 42 Troponin I Less than 0.02 L Total Protein Albumin Lipase Urine Color Yellow Urine Clarity Clear Urine pH 5.5 Ur Specific [place] 1.025 Urine Protein Negative Urine Glucose (UA) Negative Urine Ketones Negative Urine Occult Blood Negative Urine Nitrate Negative Urine Bilirubin Negative Urine Urobilinogen 0.2 Ur Leukocyte Esterase Negative Urine RBC 0-3 Urine WBC 0-5 Ur Squamous Epith Cells 0-5 Urine Bacteria Few H Micro UA Comment Culture not ind Ur Microscopic Review Microscopic reviewed Urine Culture Comments Culture not ind - Imaging Myocardial Perfusion Scan Nuc Med 12/06/17 00:00 CONCLUSION: No reversible perfusion defects. No focal wall motion abnormalities. Ejection fraction 66%. Chest X-Ray 12/06/17 02:33 CONCLUSION: 1. No acute abnormality or significant interval change. Abdomen/Pelvis CT 12/06/17 02:35 CONCLUSION: 1. No acute CT abnormality in the abdomen or pelvis. 2. Normal appendix. 3. Hepatic steatosis. 4. Leiomyomatous uterus. Caprini VTE Risk Assessment Caprini VTE Risk Assessment: Moderate/High Risk (score >= 2) Caprini Risk Assessment Model: Point Value = 1 Point Value = 2 Point Value = 3 Point Value = 5 Age 41-60 Minor surgery BMI > 25 kg/m2 Swollen legs Varicose veins or History of unexplained or recurrent spontaneous Oral contraceptives or hormone replacement Sepsis (< 1 month) Serious lung disease, including pneumonia (< 1 month) Abnormal pulmonary function Acute myocardial infarction Congestive heart failure (< 1 month) History of inflammatory bowel disease Medical patient at bed rest Age 61-74 Arthroscopic surgery Major open surgery (> 45 min) Laparoscopic surgery (> 45 min) Malignancy Confined to bed (> 72 hours) Immobilizing plaster cast Central venous access Age >= 75 History of VTE Family history of VTE Factor V Leiden Prothrombin [id number] Lupus anticoagulant Anticardiolipin antibodies Elevated serum homocysteine Heparin-induced thrombocytopenia Other congenital or acquired thrombophilia Stroke (< 1 month) Elective arthroplasty Hip, pelvis, or leg fracture Acute spinal cord injury (< 1 month) Prophylaxis Regimen: Total Risk Factor Score Risk Level Prophylaxis Regimen 0-1 Low Early ambulation 2 Moderate Order ONE of the following: *Sequential Compression Device (SCD) *Heparin 5000 units SQ BID 3-4 Higher Order ONE of the following medications: *Heparin 5000 units SQ TID *Enoxaparin/Lovenox 40 mg SQ daily (WT < 150 kg, CrCl > 30 mL/min) *Enoxaparin/Lovenox 30 mg SQ daily (WT < 150 kg, CrCl > 10-29 mL/min) *Enoxaparin/Lovenox 30 mg SQ BID (WT < 150 kg, CrCl > 30 mL/min) AND/OR *Sequential Compression Device (SCD) 5 or more Highest Order ONE of the following medications: *Heparin 5000 units SQ TID (Preferred with Epidurals) *Enoxaparin/Lovenox 40 mg SQ daily (WT < 150 kg, CrCl > 30 mL/min) *Enoxaparin/Lovenox 30 mg SQ daily (WT < 150 kg, CrCl > 10-29 mL/min) *Enoxaparin/Lovenox 30 mg SQ BID (WT < 150 kg, CrCl > 30 mL/min) AND *Sequential Compression Device (SCD) Assessment and Plan - Assessment (1) Abdominal pain Code(s): R10.9 - Unspecified abdominal pain Status: Acute (2) Chest pain Code(s): R07.9 - Chest pain, unspecified Status: Acute - Plan Chest pain, atypical -Patient with increased risk factors include age, hypertension, hyperlipidemia, tobacco use -Patient has been ruled out for acute coronary event with serial cardiac enzymes that have remained negative -Serial EKGs are reviewed by myself shows sinus rhythm without any changes -Myocardial perfusion study was performed and indicated No reversible perfusion defects. No focal wall motion abnormalities. Ejection fraction 66%. -Patient continued on aspirin, nitroglycerin as needed Abdominal pain -CT scan did not indicate any acute abnormality or etiology of her pain -Start proton pump inhibitor -Patient is already having outpatient follow-up and management by Dr. Black. Plans for colonoscopy to be performed on Saturday next week Hypertension, hyperlipidemia -Continue home medications DVT prevention -Sequential compression devices Discharge Planning: Discharge home in stable condition Activity: Ad vidhi. Diet: Healthy heart diet Medication per medication reconciliation Follow-up with primary medical doctor in 1 week
[2017-12-06] MEDS ORDERED: Anastrozole 1 MG Tablet PO SCH ×2 (09:00→21:00)
[2017-12-06] MEDS ORDERED: Atenolol 25 MG Tablet PO SCH (09:00)
[2017-12-06 10:09] VITALS: TEMP 97.9
[2017-12-06] MEDS ORDERED: Regadenoson Inj 0.4 MG/5 ML Syringe IV.PUSH ONE (10:13)
[2017-12-06 10:29] LABS: Creatine Kinase 44 U/L (26-192)
--- NOTE | 2017-12-06 11:23 | NM ---
EXAM DATE: 12/06/2017 11:16 AM EDT AGE/SEX: 57 years / Female INDICATIONS:Angina. . Right sided chest pain. CLINICAL DATA: This is the patient's initial encounter. Patient reports that signs and symptoms have been present for 1 day and indicates a pain score of 1/10. MEDICAL/SURGICAL HISTORY: Hypertension. Carcinoma, breast. Mastectomy, bilateral. Implantation urinary electronic stimulator device. [place] [facility] [place] 08/12/2012. . DOSE: 11 mCi Tc 99m Myoview at rest 35 mCi Ne95t-Dorevby at stress 0.4 mg Lexiscan STRESS SYMPTOMS: None. EJECTION FRACTION: 66 % TECHNIQUE: The patient underwent pharmacologic stress with infusion of prescribed dose. Continuous ECG tracing was monitored during stress. Gated SPECT imaging was performed after stress and conventi onal SPECT imaging was performed at rest. The examination was performed on a SPECT/CT scanner, both attenuation and non-corrected datasets were reviewed. FINDINGS: Distribution: The maximum perfused segment at stress is in the lateral wall. Perfusion Study: The pattern of perfusion at stress is within normal limits. Gated Study: There are intact wall motion and wall thickening without hypokinetic or dyskinetic segm ents. The ejection fraction is calculated at 66%. RISK CATEGORY: Low (<1% Annual Mortality Rate) CONCLUSION: No reversible perfusion defects. No focal wall motion abnormalities. Ejection fraction 66%. Electronically signed by: Tulio Duncan MD 12/06/2017 11:22 AM EDT
[2017-12-06 12:18] VITALS: BP 134/70; PULSE 68; RESP 14; O2SAT 97
--- NOTE | 2017-12-06 13:45 | TR ---
Date Performed: 12/06/2017 Time Performed: 10:29:00 DOCTOR: Payam Kingston DRUG LIST: CLINICAL HISTORY: REASON FOR TEST: REASON FOR ENDING: OBSERVATION: CONCLUSION: Lexiscan stress test was performed under standard four minute protocol. Radionuclide was injected one minute prior to ending the test. No electrocardiographic abormalities were present to suggest ischemia. Nuclear imaging and interpretation are pending. COMMENTS:
--- NOTE | 2017-12-06 14:22 | ECG ---
Date Performed: 12/06/2017 Time Performed: 05:38:52 PTAGE: 57 years EKG: NORMAL Sinus rhythm NORMAL ECG PREVIOUS TRACING : 12/06/2017 01.04 DOCTOR: Elliot Rowley Interpretating Date/Time 12/06/2017 14:21:03
--- NOTE | 2017-12-06 14:22 | ECG ---
Date Performed: 12/06/2017 Time Performed: 01:04:54 PTAGE: 57 years EKG: Sinus rhythm NORMAL ECG Since the PREVIOUS TRACING , no significant change noted PREVIOUS TRACIN04/01/2016 12.59 DOCTOR: Elliot Rowley Interpretating Date/Time 12/06/2017 14:20:48
== END 2017-12-06 12:45 | disposition home or self-care (01) ==
LOC: PHED 00:51 → PHEDA 00:51 → PHICU 05:02
PROVIDERS: ADMIT Family Medicine; ATTEND Family Medicine